=== PATIENT | female | born 1975 ===

== ENCOUNTER 2023-07-26 13:37 | Emergency (ER) | payer OTHER, SELFPAY ==
[2023-07-26 13:55] VITALS: BP 167/94; PULSE 68; RESP 18; TEMP 36.2; O2SAT 97; BMI 37.8
[2023-07-26] MEDS: 0.9 % SODIUM CHLORIDE 1000 ml 1,000 ML IV (16:40)
[2023-07-26] MEDS: LORazepam 2 MG/ML inj 0.5 MG IVP (16:42)
[2023-07-26 16:45] LABS: Basophils Percent Auto 0.3 % (0.0-3.0); Eosinophils Percent Auto 0.7 % (0.0-7.0); Hematocrit 46.5 % (33.0-51.0); Hemoglobin* 14.9 gm/dL (12.0-16.0); Immature Granulocytes Pct Auto 0.2 %; Mean Corpuscular HGB Conc 32 gm/dL (32-36); Mean Corpuscular Hemoglobin 27 pg (26-34); Mean Corpuscular Volume 85 fL (80-100); Monocytes Percent Auto 4.6 % (0.0-11.0); Neutrophils Percent Auto 83.2 % (42.0-72.0); Platelet Count* 299 K/uL (140-440); Red Blood Count 5.46 m/uL (4.00-5.20); White Blood Count* 12.08 K/uL (4.50-11.00)
[2023-07-26 16:47] LABS: Slide Review Reflex No
[2023-07-26 16:57] VITALS: PULSE 75; O2SAT 95
[2023-07-26 17:00] VITALS: PULSE 74; O2SAT 94
[2023-07-26 17:06] LABS: Partial Thromboplastin Time* 24 Seconds (23-33); Prothrombin Time 12.6 Seconds
[2023-07-26 17:15] VITALS: PULSE 87; O2SAT 97
[2023-07-26 17:23] LABS: NT Pro B Type NatriureticPept* 37 pg/mL
[2023-07-26 17:30] VITALS: PULSE 75; O2SAT 96
[2023-07-26 17:34] LABS: D Dimer Quantitative* 0.26 ug/ml (0.00-0.50)
[2023-07-26 17:39] LABS: Chloride* 103 mmol/L (96-114); Potassium* 3.9 mmol/L (3.6-5.1); Sodium* 141 mmol/L (135-149)
[2023-07-26 17:42] LABS: Anion Gap 9 mEq/L (7-15); Blood Urea Nitrogen* 14 mg/dL (5-24); Calcium* 9.8 mg/dL (8.4-10.6); Carbon Dioxide* 29 mmol/L (20-32); Creatinine* 0.5 mg/dL (0.5-1.5); Estimated Glomerular Filt Rate 115 ml/min; Glucose* 111 mg/dL (60-115)
[2023-07-26 17:46] LABS: PCR FLU A Negative PCR FLU A (Negative); PCR FLU B Negative PCR FLU B (Negative); PCR RSV Negative PCR RSV (Negative); SARS PCR* Negative SARS-CoV-2 (Negative)
--- NOTE | 2023-07-26 18:05 | ED.DIZZY ---
HPI - Dizziness General Date Seen: 07/26/23 Chief Complaint: Dizziness/Vertigo Stated Complaint: Vertigo, weak, vomiting Time Seen by Provider: 07/26/23 15:41 Source: patient and family Mode of arrival: ambulatory Limitations: no limitations History of Present Illness HPI Narrative: Patient woke up went to restroom. She felt dizzy and lightheaded but has had similar episodes with fast change of positioning and allergy season . Worked through this and went to work. She suddenly had intense sense of spinning while at her desk. She vomited profusely there and shut eye and hung unto desk. She is now able to have eye open but vertigo can be brought on with head positioning. Patient is a very nice 48 year old lady who presents here with a history of above. This occurred after she got up this morning, so she is been approximately 8-9 hours with symptoms. Symptoms are very control bow she does move her head, or change physician she notices whenever she does this she feels the room is spinning, and she low feels she might follow her left. She was using a family member when she walked in here, she does not feel that she has any problems speech, there is no visions changes, she has no weakness in any of her extremities, or any sensory issues. She did vomit x1, and she does tell me it feels like she has a little bit on a ship, she does not use alcohol does no with the feeling is of taking too much alcohol. No history of falls or injury, denies a headache, fevers chills, or any other symptoms. MD elicited complaint: dizziness and vertigo Timing: awoke with symptoms Severity: moderate Description: sense of movement and room spinning Context: change in body position History of similar symptoms: Yes Exacerbating factors: change in body position Relieving factors: keeping eyes closed Associated symptoms: nausea and vomiting Stroke scale total: 0 Related Data Home Medications Medication Instructions Recorded Confirmed No Known Home Medications 07/26/23 07/26/23 Allergies Allergy/AdvReac Type Severity Reaction Status Date / Time Penicillins Allergy Intermediate Unknown Verified 07/26/23 13:53 pineapple Allergy Intermediate Gastrointestinal Verified 07/26/23 13:53 Upset Sulfa (Sulfonamide Allergy Intermediate Unknown Verified 07/26/23 13:53 Antibiotics) Review of Systems Status of ROS: Reports: 10 or more systems reviewed and unremarkable except as noted in History and below [facility] Social History Smoking Status: Never smoker How often do you have a drink containing alcohol: never AUDIT-C Alcohol total score: 0 Non-prescribed substance use: denies use Exam Narrative: Exam Narrative: Patient is a murtaza lady, seen in room 7, she appears to be in notice breast stress, speaking to me normally, pupils are equal round reactive to light, there is beating nystagmus to the left, 2 beats none to the right. Hints test is otherwise negative, her TMs show some serous otitis media bilaterally, oropharynx normal, neck is supple, normal range of motion, no meningismus, cranial nerves 3-12 are normal, visual pereira are normal on testing. Heart sounds are normal no clicks murmurs or gallops good air entry, abdomen is soft, she moves all extremities independently well fine motor movements finger-nose testing is normal, and heel-mathis testing is normal, she does not have a tremor. Const: Vital Signs, click to edit/add: Vital Signs - 24 hr 07/26/23 13:55 07/26/23 16:57 07/26/23 17:00 Temperature 97.2 F L Pulse Rate 75 74 Pulse Rate [Pulse Oximeter] 68 Respiratory Rate 18 Blood Pressure [Ri ght Upper Arm] 167/94 H Pulse Oximetry 97 95 94 Oxygen Delivery Me thod Room Air 07/26/23 17:15 07/26/23 17:30 Temperature Pulse Rate 87 75 Pulse Rate [Pulse Oximeter] Respiratory Rate Blood Pressure [Ri ght Upper Arm] Pulse Oximetry 97 96 Oxygen Delivery Me thod Documenting provider has reviewed patient's vital signs: yes Course Course ED Course: She received lorazepam 0 issue her symptoms improved markedly she was able to walk to the bathroom by herself and walk around. I think it would be reasonable let her go, I think this is peripheral vertigo and not a central cause based on what I am seeing, and her improvement, I discussed with her this use the last 2-3 days, then improves although I did go over warning signs in detail with her in which she should avoid. Driving cars or machine re, should be avoided for 2-3 days especially if she is on medication. She will follow-up if any further issues. Vital Signs Vital signs: Initial Vital Signs Temperature 97.2 F L 07/26/23 13:55 Temperature Source Temporal Artery Scan 07/26/23 13:55 Pulse Rate 68 07/26/23 13:55 Respiratory Rate 18 07/26/23 13:55 Blood Pressure 167/94 H 07/26/23 13:55 Blood Pressure Mean 118 H 07/26/23 13:55 Pulse Oximetry 97 07/26/23 13:55 Oxygen Delivery Method Room Air 07/26/23 13:55 Vital Signs Temperature 97.2 F L 07/26/23 13:55 Pulse Rate 68 07/26/23 13:55 Respiratory Rate 18 07/26/23 13:55 Blood Pressure 167/94 H 07/26/23 13:55 Pulse Oximetry 97 07/26/23 13:55 Oxygen Delivery Method Room Air 07/26/23 13:55 Temperature 97.2 F L 07/26/23 13:55 Pulse Rate 75 07/26/23 17:30 Respiratory Rate 18 07/26/23 13:55 Blood Pressure 167/94 H 07/26/23 13:55 Pulse Oximetry 96 07/26/23 17:30 Oxygen Delivery Method Room Air 07/26/23 13:55 Medications Administered Medications: Discontinued Medications Generic Name Dose Route Start Last Admin Trade Name Freq PRN Reason Stop Dose Admin Sodium Chloride 1,000 mls @ 1,000 mls/hr 07/26/23 16:00 07/26/23 17:23 0.9 % Sodium Chloride 1000 Ml IV 07/26/23 16:59 Infused .Q1H JAI Infusion Lorazepam 0.5 mg 07/26/23 15:58 07/26/23 16:42 Lorazepam 2 Mg/Ml Inj IVP 07/26/23 15:59 0.5 mg ONCE ONE Administration MDM - Dizziness MDM Narrative Medical decision making narrative: Life-threatening differential diagnosis considered include, CVA, other differential diagnosis include BPPV, labyrinthitis, Meniere's disease, vestibular neuronitis, migraine, multiple sclerosis, otitis media, viral syndrome as well as other etiologies I do think this is peripheral vertigo based on the test, I do not think we need to do head imaging, Medical Records Attestation: I reviewed the patient's medical records. Lab Data Attestation: I reviewed the patient's lab results. Labs: Lab Results 07/26/23 07/26/23 Range/Units 15:56 16:12 WBC 12.08 H (4.50-11.00) K/uL RBC 5.46 H (4.00-5.20) m/uL Hgb 14.9 (12.0-16.0) gm/dL Hct 46.5 (33.0-51.0) % MCV 85 (80-100) fL MCH 27 (26-34) pg MCHC 32 (32-36) gm/dL RDW Coeff of Becki 14.0 (11.5-15.5) % Plt Count 299 (140-440) K/uL Neut % (Auto) 83.2 H (42.0-72.0) % Lymph % (Auto) 11.0 L (20-44) % Newton % (Auto) 4.6 (0.0-11.0) % Eos % (Auto) 0.7 (0.0-7.0) % Baso % (Auto) 0.3 (0.0-3.0) % Neut # (Auto) 10.10 H (1.7-7.0) K/uL Lymph # (Auto) 1.30 (0.90-2.90) K/uL Newton # (Auto) 0.60 (0.00-0.90) K/UL Eos # (Auto) 0.10 (0.00-0.50) K/uL Baso # (Auto) 0.00 (0.00-0.30) K/uL Abs Immat Gran (auto) 0.00 (0.00-0.30) K/uL Imm/Tot Granulo (auto) 0.2 % INR 0.90 L (0.91-1.10) APTT 24 (23-33) Seconds D-Dimer Quant (PE/DVT) 0.26 (0.00-0.50) ug/ml Sodium 141 (135-149) mmol/L Potassium 3.9 (3.6-5.1) mmol/L Chloride 103 (96-114) mmol/L Carbon Dioxide 29 (20-32) mmol/L Anion Gap 9 (7-15) mEq/L BUN 14 (5-24) mg/dL Creatinine 0.5 (0.5-1.5) mg/dL Estimated Creat Clear 102.70 Estimated GFR 115 ml/min Glucose 111 (60-115) mg/dL Calcium 9.8 (8.4-10.6) mg/dL NT-Pro-B Natriuret Pep 37 pg/mL SARS-CoV-2 (PCR) Negative SARS-CoV-2 (Negative) Influenza Type A (PCR) Negative PCR FLU A (Negative) Influenza Type B (PCR) Negative PCR FLU B (Negative) RSV (PCR) Negative PCR RSV (Negative) POC Troponin I 0.00 L (0.01-0.04) ng/ml ECG Data Attestation: I personally reviewed and interpreted this ECG as follows: ECG interpretation date: 07/26/23 Interpretation: EKG shows normal sinus rhythm, no acute changes. Ventricular rate 84, normal QT QTC Discharge Plan Discharge Clinical Impression: Vertigo Patient Disposition: Home w/ Parent or Adult Condition: Stable Instructions: Vertigo (DC) Additional Instructions: Home, rest and use of Ativan for symptom control, you may also use Dramine which is over the counter for motion control. This usually results in 2-3 days berfore a lot better. No alcohol. As both these medications make u tired. Instymeds for 10 tabs of ativan Activity Level: Light activity and Up with assist Discharge Diet: Regular Prescriptions: No Action No Known Home Medications Follow Up/Referrals: Lynn Swanson NP [Primary Care Provider] - Stand Alone Forms: MyHealth Info Instructions
== END 2023-07-26 18:10 | disposition home or self-care (01) ==
PROVIDERS: Emergency Provider Family Medicine; PCP Nurse Practitioner
DX: R42 Dizziness and giddiness (principal)
CPT/HCPCS: 36415; 80048; 83880; 84484; 85025; 85379; 85610; 85730; 87631; 93005; 94761; 96374; 99284; J2060; J7030